=== PATIENT | female | born 1955 | race Caucasian/White ===

== ENCOUNTER → 2016-06-27 | Outpatient (CLI) | payer MEDICARE, OTHER ==
--- NOTE | 2016-06-27 17:03 | XR ---
EXAMINATION TYPE: XR shoulder complete LT DATE OF EXAM: 06/27/2016 4:55 PM COMPARISON: NONE HISTORY: Chronic pain, patient is recently having anterior shoulder pain with axillary area swelling TECHNIQUE: 3 views FINDINGS: The bones and joints and soft tissues are unremarkable. IMPRESSION: Negative examination.
== END | disposition home or self-care (01) ==
LOC: RADXRMAIN 16:32
PROVIDERS: ATTEND Family Medicine
DX: M25.512 Pain in left shoulder (principal)

== ENCOUNTER 2016-08-09 11:03 | Emergency (ER) | payer MEDICARE, OTHER ==
[2016-08-09] MEDS ORDERED: HYDROmorphone 1 MG/ML 1 ML SYRINGE IVP STA (12:06)
[2016-08-09 12:37] LABS: Basophils % (A) 0 %; CH 30.9; CHCM 34.2; Eosinophils # (A) 0.4 k/uL (0-0.7); Eosinophils % (A) 4 %; HDW 3.29; HGB 13.5 gm/dL (11.4-16.0); Luc # (Auto) 0.16; Luc % (Auto) 2; Lymphocytes # (A) 1.5 k/uL (1.0-4.8); Lymphocytes % (A) 15 %; MCV 90.8 fL (80.0-100.0); Monocytes # (A) 0.3 k/uL (0-1.0); Monocytes % (A) 3 %; Neutrophils # (A) 7.6 k/uL (1.3-7.7); Neutrophils % (A) 76 %; RBC 4.51 m/uL (3.80-5.40); RDW 15.4 % (11.5-15.5)
--- NOTE | 2016-08-09 13:01 | XR ---
EXAMINATION TYPE: XR tibia fibula RT DATE OF EXAM ORDERED: 08/09/2016 12:39 PM HISTORY: Pain. COMPARISON: None. FINDINGS: There is a large soft tissue defect in the medial aspect of the calf. No fracture, disloca tion or radiopaque foreign body is seen. IMPRESSION: SOFT TISSUE LACERATION.
[2016-08-09 13:03] LABS: Anion Gap 13 mmol/L; Blood Urea Nitrogen 18 mg/dL (7-17); Calcium 9.5 mg/dL (8.4-10.2); Carbon Dioxide 24 mmol/L (22-30); Chloride 104 mmol/L (98-107); Glucose 89 mg/dL (74-99); Non-African American GFR(MDRD) 58 (>60 ml/min/1.73 sqM); Potassium 4.4 mmol/L (3.5-5.1); Sodium 141 mmol/L (137-145)
[2016-08-09 13:16] LABS: Partial Thromboplastin Time 21.1 sec (22.0-30.0)
[2016-08-09] MEDS ORDERED: AMOXIC-POT CLAV 875-125MG 1 EACH TAB PO STA (15:11)
--- NOTE | 2016-08-09 15:21 | ED ---
General Adult HPI - General Chief complaint: Animal Bite Stated complaint: Dog bite Time Seen by Provider: 08/09/16 11:28 Source: patient Mode of arrival: wheelchair - History of Present Illness Initial comments: 61-year-old female presented for evaluation of dog bite to right calf. Dog a surgeon she states immunizations are up-to-date. The dog was fighting with a group of other dogs and she tried to split up when her dog bit her. There is moderate amount of bleeding from the wound and she was brought to the ED by her . She denies any other injuries. States her tetanus is out of date. - Related Data Home Medications Medication Instructions Recorded Confirmed predniSONE 10 mg PO HS 04/08/16 08/09/16 Diazepam [Valium] 10 mg PO BID 08/09/16 08/09/16 Previous Rx's Medication Instructions Recorded Amoxic-Pot Clav 875-125Mg 1 tab PO Q12HR #20 tablet 08/09/16 [Augmentin 875-125] HYDROcodone/APAP 5-325MG [[place] 1 - 2 tab PO Q6HR PRN #14 tab 08/09/16 5-325] Ibuprofen [Motrin] 800 mg PO Q8HR PRN #20 tab 08/09/16 Allergies Allergy/AdvReac Type Severity Reaction Status Date / Time shellfish derived [Shrimp] Allergy Nausea & Verified 08/09/16 11:08 Vomiting shrimp Allergy Nausea & Verified 08/09/16 11:08 Vomiting Review of Systems ROS Statement: Those systems with pertinent positive or pertinent negative responses have been documented in the HPI. ROS Other: All systems not noted in ROS Statement are negative. Constitutional: Denies: fever, chills Eyes: Denies: eye pain, eye discharge ENT: Denies: ear pain, throat pain, dental pain, hearing loss Respiratory: Denies: cough, dyspnea, wheezes, hemoptysis Cardiovascular: Denies: chest pain, palpitations, dyspnea on exertion, orthopnea Endocrine: Denies: fatigue, polydipsia, polyuria Gastrointestinal: Denies: abdominal pain, nausea, vomiting Genitourinary: Denies: urgency, dysuria, frequency, hematuria Musculoskeletal: Denies: back pain, arthralgia Skin: Reports: other (Laceration through subcutaneous tissue). Denies: rash Neurological: Denies: headache, weakness Psychiatric: Denies: anxiety, depression Past Medical History Past Medical History: GERD/Reflux, Memory Impairment, Rheumatoid Arthritis (RA) Additional Past Medical History / Comment(s): Has been on steroids for 4 yrs for Rheumatoid arthritis, carpal tunnel, neuropathy in bilateral hands and feet , sores over entire body from itching. History of Any Multi-Drug Resistant Organisms: None Reported Past Surgical History: Adenoidectomy, Tonsillectomy Past Anesthesia/Blood Transfusion Reactions: No Reported Reaction Past Psychological History: Depression Smoking Status: Former smoker Past Alcohol Use History: Occasional Additional Past Alcohol Use History / Comment(s): Smoked 1 1/2 PPD for 40 yrs, quit in 2011. Past Drug Use History: None Reported - Past Family History Father Family Medical History: Cancer Mother Family Medical History: Cancer General Exam Limitations: no limitations General appearance: alert, in distress Head exam: Present: atraumatic, normocephalic Eye exam: Present: normal appearance, PERRL, EOMI ENT exam: Present: normal exam, normal oropharynx Neck exam: Present: normal inspection. Absent: tenderness Respiratory exam: Present: normal lung sounds bilaterally. Absent: respiratory distress, wheezes, rales, rhonchi Cardiovascular Exam: Present: regular rate, normal rhythm. Absent: bradycardia , tachycardia, irregular rhythm GI/Abdominal exam: Present: soft. Absent: distended, tenderness, guarding, rebound, rigid Rectal exam: Present: deferred Extremities exam: Present: tenderness, other. Absent: normal inspection (25 cm laceration to the right calf with extension to the muscle belly) Back exam: Present: normal inspection, full ROM Neurological exam: Present: alert, oriented X3, CN II-XII intact. Absent: altered Psychiatric exam: Present: agitated, anxious Skin exam: Present: warm, dry Course Vital Signs 08/09/16 08/09/16 11:08 15:44 Temperature 98.4 F 97.7 F Pulse Rate 61 60 Respiratory 17 16 Rate Blood Pressure 116/68 125/58 O2 Sat by Pulse 99 98 Oximetry Procedures - Laceration Laceration #1 Consent Obtained: verbal consent Time Out Performed: Yes Indication: laceration Site: lower extremity Size (cm): 25 Description: stellate Depth: involves muscle layer Sedation/Analgesia: none Anesthetic Used: lidocaine 2% Anesthesia Technique: local infiltration Pre-repair: irrigated extensively Size of Sutures: 4-0 Number of Sutures: 23 Technique: simple, interrupted Patient Tolerated Procedure: well Additional Comments: Genny Choudhary performed procedure under supervision Medical Decision Making - Medical Decision Making 61-year-old female presenting for evaluation of laceration to right calf resulting from dog bite. Tetanus status is out of date. Physical exam of the wound reveals there is laceration through the subcutaneous tissue. Patient pain controlled and x-ray revealed no foreign bodies in the wound. It was copiously irrigated and laceration repair by [employer] student Genny Choudhary with close approximation. Wound bandaged and tetanus status updated. Pt tolerated procedure well and given first dose of antibiotics. She was advised follow-up with her primary care physician but to return to this facility if her symptoms should worsen or persist. She acknowledged an understanding of this information and agreed with this plan of care. - Lab Data Result diagrams: 08/09/16 12:20 08/09/16 12:20 Lab Results 08/09/16 08/09/16 08/09/16 Range/Units 12:20 12:20 12:20 WBC 10.0 (3.8-10.6) k/uL RBC 4.51 (3.80-5.40) m/uL Hgb 13.5 (11.4-16.0) gm/dL Hct 41.0 (34.0-46.0) % MCV 90.8 (80.0-100.0) fL MCH 30.0 (25.0-35.0) pg MCHC 33.0 (31.0-37.0) g/dL RDW 15.4 (11.5-15.5) % Plt Count 250 (150-450) k/uL Neutrophils % 76 % Lymphocytes % 15 % Monocytes % 3 % Eosinophils % 4 % Basophils % 0 % Neutrophils # 7.6 (1.3-7.7) k/uL Lymphocytes # 1.5 (1.0-4.8) k/uL Monocytes # 0.3 (0-1.0) k/uL Eosinophils # 0.4 (0-0.7) k/uL Basophils # 0.0 (0-0.2) k/uL PT 10.0 (9.0-12.0) sec INR 1.0 (<1.1) APTT 21.1 L (22.0-30.0) sec Sodium 141 (137-145) mmol/L Potassium 4.4 (3.5-5.1) mmol/L Chloride 104 (98-107) mmol/L Carbon Dioxide 24 (22-30) mmol/L Anion Gap 13 mmol/L BUN 18 H (7-17) mg/dL Creatinine 0.98 (0.52-1.04) mg/dL Est GFR (MDRD) Af Amer >60 (>60 ml/min/1.73 sqM) Est GFR (MDRD) Non-Af 58 (>60 ml/min/1.73 sqM) Glucose 89 (74-99) mg/dL Calcium 9.5 (8.4-10.2) mg/dL Disposition Clinical Impression: Dog bite, Laceration Disposition: HOME SELF-CARE Condition: Stable Instructions: Animal Bite (ED), Laceration (ED) Additional Instructions: Please use medication as discussed. Please follow up with family doctor if symptoms have not improved over the next two days. Please return to the emergency room if your symptoms increase or worsen or for any other concerns. Prescriptions: Amoxic-Pot Clav 875-125Mg [Augmentin 875-125] 1 tab PO Q12HR #20 tablet HYDROcodone/APAP 5-325MG [[place] 5-325] 1 - 2 tab PO Q6HR PRN #14 tab PRN Reason: Analgesia Ibuprofen [Motrin] 800 mg PO Q8HR PRN #20 tab PRN Reason: Analgesia Referrals: Calderon Colmenares MD [Primary Care Provider] - 1-2 days Time of Disposition: 15:21
[2016-08-09] MEDS ORDERED: DIPH,PERTUS(ACELL)TETVAC-LF 0.5 ML VIAL IM ONE (15:42)
[2016-08-09 15:44] VITALS: BP 125/58; PULSE 60; RESP 16; TEMP 97.7
== END 2016-08-09 16:05 | disposition home or self-care (01) ==
LOC: EC 11:03
DX: S81.811A Laceration without foreign body, right lower leg, initial encounter (principal); W54.0XXA Bitten by dog, initial encounter; Z79.899 Other long term (current) drug therapy; Z23 Encounter for immunization; Z87.891 Personal history of nicotine dependence; Z91.013 Allergy to seafood
CPT/HCPCS: 36415; 80048; 85025; 85610; 85730; 73590; 90715; 90471; 96374; 12036; 99284; J1170

== ENCOUNTER 2016-08-28 11:47 | Emergency (ER) | payer MEDICARE ==
[2016-08-28 12:17] VITALS: BP 132/75; PULSE 66; RESP 20; TEMP 99.4
--- NOTE | 2016-08-28 16:09 | ED ---
General Adult HPI - General Chief complaint: Recheck/Abnormal Lab/Rx Stated complaint: stitches out Time Seen by Provider: 08/28/16 15:51 Source: patient, RN notes reviewed Mode of arrival: ambulatory Limitations: no limitations - History of Present Illness Initial comments: Patient is 61-year-old female who presents emergency room today with chief complaint of possible infected wound. She does admit that she was seen here in the emergency room approximately 2 and half weeks ago for dog bite to the right calf. States that she had stitches placed. States she was supposed to have stitches taken out 5 days ago but she noticed it seemed like it was quite open nauseous left stitches in. She states that she thinks it may be an infection now. States she was on antibiotics for 10 days after the bite. She states she' s been off his antibiotics now for over the last week. States there is some local redness. She does admit that seems to be somewhat improved from a few days ago. She denies any other complaints or symptoms. States been using a topical antibiotic. Patient denies any recent fever, chills, shortness of breath , chest pain, back pain, abdominal pain, nausea or vomiting, numbness or tingling, dysuria or hematuria, constipation or diarrhea, headaches or visual changes, or any other complaints. - Related Data Home Medications Medication Instructions Recorded Confirmed predniSONE 10 mg PO DAILY 04/08/16 08/28/16 Cholecalciferol [Vitamin D3] 1,000 unit PO DAILY 08/28/16 08/28/16 PARoxetine HCL [Paxil] 40 mg PO DAILY 08/28/16 08/28/16 Previous Rx's Medication Instructions Recorded Amoxicillin/Potassium Clav 1 each PO Q12HR #20 tab 08/28/16 [Augmentin 875-125 Tablet] Allergies Allergy/AdvReac Type Severity Reaction Status Date / Time shellfish derived [Shrimp] AdvReac Nausea & Verified 08/28/16 16:08 Vomiting shrimp AdvReac Nausea & Verified 08/28/16 16:08 Vomiting Review of Systems ROS Statement: Those systems with pertinent positive or pertinent negative responses have been documented in the HPI. ROS Other: All systems not noted in ROS Statement are negative. Past Medical History Past Medical History: GERD/Reflux, Memory Impairment, Rheumatoid Arthritis (RA) Additional Past Medical History / Comment(s): Has been on steroids for 4 yrs for Rheumatoid arthritis, carpal tunnel, neuropathy in bilateral hands and feet , sores over entire body from itching. History of Any Multi-Drug Resistant Organisms: None Reported Past Surgical History: Adenoidectomy, Tonsillectomy Past Anesthesia/Blood Transfusion Reactions: No Reported Reaction Past Psychological History: Depression Smoking Status: Former smoker Past Alcohol Use History: Occasional Additional Past Alcohol Use History / Comment(s): Smoked 1 1/2 PPD for 40 yrs, quit in 2011. Past Drug Use History: None Reported - Past Family History Father Family Medical History: Cancer Mother Family Medical History: Cancer General Exam - General Exam Comments Initial Comments: General: The patient is awake and alert, in no distress, and does not appear acutely ill. Neck: The neck is supple, there is no tenderness or JVD. Cardiovascular: There is a regular rate and rhythm. No murmur, rub or gallop is appreciated. Respiratory: Lungs are clear to auscultation, respirations are non-labored, breath sounds are equal. No wheezes, stridor, rales, or rhonchi. Musculoskeletal: Full range of motion. Sensation intact. Pulses equal bilateral 2+. Strength 5/5. Neurological: A&O x 3. CN II-XII intact, There are no obvious motor or sensory deficits. Coordination appears grossly intact. Speech is normal. Skin: Patient does have a large U-shaped laceration to the medial aspect of the right calf. There is some local redness swelling surrounding the laceration site. No lymphangitic streaking. Psychiatric: Normal mood and affect. Limitations: no limitations Course Vital Signs 08/28/16 12:15 Temperature 99.4 F Pulse Rate 66 Respiratory 20 Rate Blood Pressure 132/75 O2 Sat by Pulse 98 Oximetry Medical Decision Making - Medical Decision Making Case discussed in detail with attending physician Dr. Darling. Patient's wound was rechecked here in the emergency room. Patient did have 23 stitches that were placed. 15 stitches were taken out here today. Every other stitch was left in. Patient advised to stop using topical antibiotic as seems to be making the wound edges unable to heel. Wound cultures been obtained. Patient will be placed back on Augmentin. Patient is advised to watch for any increase or worsening of symptoms. Advised return in 2 days to have wound rechecked and have possible sutures taken out then. Patient states understanding and is in agreement with this plan. Disposition Clinical Impression: Encounter for wound re-check Disposition: HOME SELF-CARE Condition: Good Instructions: Animal Bite (ED) Additional Instructions: Please use antibiotic as prescribed. Please return in 2 days to have a wound recheck to have sutures possibly removed at that time. Please return here to the emergency room if there is any increased worsening of symptoms as discussed. Please return for any other concerns. Prescriptions: Amoxicillin/Potassium Clav [Augmentin 875-125 Tablet] 1 each PO Q12HR #20 tab Time of Disposition: 16:29
== END 2016-08-28 16:53 | disposition home or self-care (01) ==
LOC: EC 11:47
DX: Z48.817 Encounter for surgical aftercare following surgery on the skin and subcutaneous tissue (principal); F32.9 Major depressive disorder, single episode, unspecified; M06.89 Other specified rheumatoid arthritis, multiple sites; Z87.891 Personal history of nicotine dependence; Z79.52 Long term (current) use of systemic steroids; Z79.899 Other long term (current) drug therapy; Z87.2 Personal history of diseases of the skin and subcutaneous tissue; Z91.013 Allergy to seafood
CPT/HCPCS: 87070; 87077; 87186; 87205; 99283

== ENCOUNTER 2016-09-17 10:30 | Day surgery (SDC) | payer MEDICARE ==
[2016-09-13 10:56] VITALS: BMI 24.3
[~2016-09-17 10:30] MED LIST: DEXAMETHASONE SOD PHOSPHATE 10 MG/ML 1 ML VIAL IV ONE; LACTATED RINGERS 1,000 ML IV SCH; LIDOCAINE 1% 20 ML VIAL (10MG/ML) FOR IV START INTRADERMA PRN; MIDAZOLAM 2 MG/2 ML VIAL IV PRN; ONDANSETRON 4 MG/2 ML VIAL IVP ONE; Pre Op ABX Message 1 EACH MISC MISCELLANE ONE; SCOPOLAMINE 1.5MG/72HR PATCH TRANSDERM ONE
[2016-09-17 11:08] VITALS: RESP 16; TEMP 97.7
[2016-09-17] MEDS ORDERED: HYDROCORTISONE SUCCINATE 100 MG/2 ML VIAL IVP ONE (11:19)
[2016-09-17] MEDS ORDERED: fentaNYL (PF) 50 MCG/ML 2 ML AMP ONE (11:49)
[2016-09-17] MEDS ORDERED: LIDOCAINE 1% INJ 10MG/ML (20 ML MDV) ONE (11:49)
[2016-09-17] MEDS ORDERED: KETAMINE 10 MG/ML 20 ML VIAL ONE (11:49)
[2016-09-17] MEDS ORDERED: MIDAZOLAM 2 MG/2 ML VIAL ONE (11:49)
[2016-09-17] MEDS ORDERED: PROPOFOL 10 MG/ML 20 ML VIAL IV ONE (11:49)
[2016-09-17] MEDS ORDERED: SODIUM CHLORIDE 0.9% 100 ML with ceFAZolin 1,000 MG IV ONE ×2 (11:51)
--- NOTE | 2016-09-17 11:53 | P.GSHP ---
History of Present Illness H&P Date: 09/17/16 Chief Complaint: Traumatic ulcer medial right calf Patient is status post dog bite. She has a large ulceration residual with necrotic tissue - Review of Systems Comment: See recent H&P Past Medical History Past Medical History: COPD, GERD/Reflux, Memory Impairment, Rheumatoid Arthritis (RA) Additional Past Medical History / Comment(s): Has been on steroids for 4 yrs for Rheumatoid arthritis, carpal tunnel, neuropathy in bilateral hands and feet , skin has cuts and bruises all over, skin is thin. Rt. leg wound from dog bite. Mild COPD and fibrous lungs. History of Any Multi-Drug Resistant Organisms: None Reported Past Surgical History: Adenoidectomy, Tonsillectomy Past Anesthesia/Blood Transfusion Reactions: No Reported Reaction Past Psychological History: Depression Smoking Status: Former smoker Past Alcohol Use History: Occasional Additional Past Alcohol Use History / Comment(s): Smoked 1 1/2 PPD for 40 yrs, quit in 2011. Past Drug Use History: None Reported - Past Family History Father Family Medical History: Cancer Mother Family Medical History: Cancer Medications and Allergies Home Medications Medication Instructions Recorded Confirmed Type predniSONE 10 mg PO HS 04/08/16 09/17/16 History Cholecalciferol [Vitamin D3] 1,000 unit PO DAILY 08/28/16 09/17/16 History PARoxetine HCL [Paxil] 40 mg PO HS 08/28/16 09/17/16 History Diazepam [Valium] 10 mg PO BID PRN 09/13/16 09/17/16 History Allergies Allergy/AdvReac Type Severity Reaction Status Date / Time monosodium glutamate AdvReac Nausea & Verified 09/13/16 11:00 Vomiting shellfish derived [Shrimp] AdvReac Nausea & Verified 09/13/16 10:47 Vomiting shrimp AdvReac Nausea & Verified 09/13/16 10:47 Vomiting Surgical - Exam Osteopathic Statement: *. No significant issues noted on an osteopathic structural exam other than those noted in the History and Physical/Consult. Vital Signs Temp Pulse Resp BP Pulse Ox 97.7 F 68 16 124/72 98 09/17/16 11:00 09/17/16 11:00 09/17/16 11:00 09/17/16 11:00 09/17/16 11:00 - General well developed, well nourished, no distress - Eyes normal ocular movement, no icteric - ENT no hearing loss, no congestion - Neck no masses, trachea midline - Respiratory normal expansion, normal respiratory effort, clear to auscultation - Cardiovascular Rhythm: regular - Abdomen Abdomen: soft, non tender, no guarding, no rigid, no rebound - Integumentary Medial aspect right calf has a large necrotic ulceration no rash, no abnormal pigmentation - Neurologic no disoriented, no combative - Musculoskeletal normal gait, normal posture - Psychiatric oriented to time, oriented to person, oriented to place, speech is normal, memory intact Assessment and Plan (1) Ulcer of right calf with fat layer exposed Status: Acute Plan: Patient agrees with with are discussed debridement.
--- NOTE | 2016-09-17 12:15 | P.PCN ---
Date of Procedure: 09/17/16 Preoperative Diagnosis: Traumatic ulceration medial right calf Postoperative Diagnosis: Same Procedure(s) Performed: Surgical debridement medial right calf Anesthesia: MAC Surgeon: Luis Antonio Izaguirre Estimated Blood Loss (ml): 20 Pathology: none sent Condition: stable Disposition: PACU Indications for Procedure: Patient has a very necrotic ulceration medial right calf secondary to a dog bite and attempted repair Operative Findings: There was a lot of slough. There were some necrotic fatty tissue and necrotic skin edges Description of Procedure: With the patient supine position, under benefit of IV sedation, we prepped and draped in standard fashion. We used first a scalpel and then a sharp curet to excise some necrotic skin edges. We removed nonviable fatty tissue and slough. We left a clean bloody subcutaneous bed. Hemostasis was accomplished with direct pressure. Adaptic and otherwise sterile dressings with covering Evin wrap were applied. The patient tolerated the procedure well. She was taken recovery area in stable condition.
[2016-09-17] MEDS: HYDROmorphone 1 MG/ML 1 ML SYRINGE IVP PRN ×4 (12:32→12:51)
[2016-09-17 13:34] VITALS: BP 107/70; PULSE 64
== END 2016-09-17 14:00 | disposition home or self-care (01) ==
LOC: OR 10:30
PROVIDERS: ATTEND Thoracic Surgery (Cardiothoracic Vascular Surgery)
DX: L97.212 Non-pressure chronic ulcer of right calf with fat layer exposed (principal); J44.9 Chronic obstructive pulmonary disease, unspecified; J84.10 Pulmonary fibrosis, unspecified; F32.9 Major depressive disorder, single episode, unspecified; F41.9 Anxiety disorder, unspecified; Z79.52 Long term (current) use of systemic steroids; Z79.899 Other long term (current) drug therapy; M06.9 Rheumatoid arthritis, unspecified; Z87.891 Personal history of nicotine dependence; Z91.02 Food additives allergy status; Z91.013 Allergy to seafood
CPT/HCPCS: 11042; J2250; J1100; J1720; J2405; J2001; J3010; J1170; J0690; J2704

== ENCOUNTER 2016-11-04 16:30 | Emergency (ER) | payer MEDICARE ==
[2016-11-04 16:41] VITALS: TEMP 98.4
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
--- NOTE | 2016-11-04 17:29 | XR ---
EXAMINATION TYPE: XR forearm LT DATE OF EXAM: 11/04/2016 COMPARISON: NONE HISTORY: Pain after a fall TECHNIQUE: 2 views FINDINGS: There is a developmentally short ulna. I see no fracture nor dislocation. Elbow joint is in tact. IMPRESSION: No acute abnormality of the left forearm.
--- NOTE | 2016-11-04 17:32 | XR ---
EXAMINATION TYPE: XR hand complete LT DATE OF EXAM: 11/04/2016 COMPARISON: NONE HISTORY: Pain TECHNIQUE: 3 views FINDINGS: There is developmentally short ulna. There is a possible nondisplaced 6 mm chip fracture of the lateral scaphoid bone. There is no dislocation. IMPRESSION: Possible nondisplaced scaphoid chip fracture.
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
--- NOTE | 2016-11-04 17:37 | XR ---
EXAMINATION TYPE: XR chest 1V portable DATE OF EXAM: 11/04/2016 COMPARISON: NONE HISTORY: Pain after a fall TECHNIQUE: Single frontal view of the chest is obtained. FINDINGS: Heart and mediastinum are normal. Lungs are clear. Diaphragm is normal. Bony thorax is int act. IMPRESSION: Normal single view chest.
[2016-11-04] MEDS ORDERED: HYDROmorphone 1 MG/ML 1 ML SYRINGE IVP STA (18:49)
[2016-11-04 20:52] VITALS: BP 103/62; PULSE 66; RESP 17
== END 2016-11-04 20:56 | disposition short-term general hospital (02) ==
LOC: EC 16:30
DX: S32.402A Unspecified fracture of left acetabulum, initial encounter for closed fracture (principal); S32.9XXA Fracture of unspecified parts of lumbosacral spine and pelvis, initial encounter for closed fracture; S62.002A Unspecified fracture of navicular [scaphoid] bone of left wrist, initial encounter for closed fracture; M06.9 Rheumatoid arthritis, unspecified; Z91.013 Allergy to seafood; Z88.8 Allergy status to other drugs, medicaments and biological substances; Z79.52 Long term (current) use of systemic steroids; Z79.899 Other long term (current) drug therapy; Y08.89XA Assault by other specified means, initial encounter
CPT/HCPCS: 99285; 96374; 29125; 71010; 73502; 73090; 73130; J1170

== ENCOUNTER → 2016-12-28 | Outpatient (CLI) | payer MEDICARE ==
--- NOTE | 2016-12-28 13:43 | MR ---
EXAMINATION TYPE: MR wrist LT wo con DATE OF EXAM: 12/28/2016 COMPARISON: Correlation and radiographs 11/04/2016 HISTORY: 61-year-old female R/O SCAPHOID FX S/P FALL TECHNIQUE: Multiplanar, multisequence images of the left wrist were obtained without IV contrast. FINDINGS: There is a nondisplaced fracture of the distal pole of the scaphoid with fracture extending into the scaphoid trapezium joint. Associated edema of the distal pole. Extensive abnormal signal extends throughout the capitate. Findings may represent nondisplaced subcho ndral fractures along its articulation with both the proximal carpal row and carpometacarpal joints. There is also a minimally distracted fracture through the base of the hamate. Mild degenerative change of the base of thumb. No significant wrist joint effusion. There is globular increased signal of the scapholunate ligament. There may be a small perforation of the proximal portion of the ligament. No dyllan rupture of the dorsal portion. The lunotriquetral ligament is intact. There is a small central perforation within the triangular fibrocartilage with small effusion in the distal radioulnar joint. There is negative ulnar variance with some degenerative changes at this join t also noted. Difficult to exclude an additional TFC tear and the ulnar styloid attachment. There is also increased signal within the dorsal radioulnar ligament. There is dyllan anterior subluxation/dislocation of the ECU without any significant edema at the level of its subsheath. Multiple slips of the abductor pollicis longus are noted. The flexor carpi radialis shows mild tenosy novial fluid at the level of the wrist. Otherwise, the dorsal extensor and volar flexor tendons are within normal limits. Median nerve is normal caliber. IMPRESSION: 1. Nondisplaced fracture of the distal scaphoid pole. 2. Additional extensive abnormal signal extending through the capitate. Suspect nondisplaced subchond ral impaction fractures at its articulation with both the proximal carpal row and CMC joints. 3. Nondisplaced fracture through the base of the hamate. 4. Moderate sprain of the dorsal scapholunate ligament and suspected small perforation of the proxima l portion of the ligament. No dyllan rupture. 5. Small central tear of the TFC with suspected additional tear at the ulnar styloid attachment. Mild to moderate sprain of the dorsal radioulnar ligament of the TFCC. 6. 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 7. 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 8. Mild FCR tenosynovitis.
== END | disposition home or self-care (01) ==
LOC: RADMRIMAIN 11:57
PROVIDERS: ATTEND Orthopaedic Surgery Hand Surgery
DX: S62.015A Nondisplaced fracture of distal pole of navicular [scaphoid] bone of left wrist, initial encounter for closed fracture (principal); S63.592A Other specified sprain of left wrist, initial encounter; M65.842 Other synovitis and tenosynovitis, left hand

== ENCOUNTER → 2017-01-31 | Outpatient (CLI) | payer MEDICARE ==
--- NOTE | 2017-01-31 09:43 | CT ---
EXAMINATION TYPE: CT chest w con DATE OF EXAM: 01/31/2017 COMPARISON: 11/04/2016 and 03/19/2016 HISTORY: chest mass CT DLP: 221.8 mGycm. Automated Exposure Control for Dose Reduction was Utilized. TECHNIQUE: CT scan of the thorax is performed following with IV Contrast, patient injected with 100 mL of Omnipaque 300. FINDINGS: LUNGS: Again mild to moderate centrilobular pulmonary emphysema is noted. Right upper lobe pulmonary nodules, unchanged from the prior measuring 3.4 mm on image 18, 3.4 mm on image 17, 3.4 mm on image 1 3, in a proximally 5.0 cm along the interlobar fissure on image 31 are unchanged from the prior of . 4.7 mm right middle lobe pulmonary nodule is also unchanged retrospectively on image 29. All of these nodules appear solid. No new pulmonary nodules are seen bilaterally. Minimal subsegmental b ibasilar atelectasis is noted. MEDIASTINUM: There are no greater than 1 cm hilar or mediastinal lymph nodes. No pericardial effusi on is seen. Incidentally the left vertebral artery originates strictly from the aortic arch, normal variation. OTHER: Splenomegaly is incidentally noted spleen measures 14.0 cm and great is longitudinal dimension and is not completely visualized on coronal imaging to get accurate measurement and craniocaudal dim ension. Mild degenerative changes of thoracic spine are overall similar to the prior exam. IMPRESSION: 1. Multiple solid right pulmonary nodules, unchanged from the prior exam of 03/19/2016. Low dose CT is recommended in one year to confirm stability or assess for progression. 2. Incidentally noted splenomegaly.
== END | disposition home or self-care (01) ==
LOC: RADCTMAIN 08:02
PROVIDERS: ATTEND Family Medicine
DX: R91.8 Other nonspecific abnormal finding of lung field (principal)
CPT/HCPCS: 71260; Q9967

== ENCOUNTER → 2017-03-07 | Outpatient (CLI) | payer MEDICARE ==
--- NOTE | 2017-03-07 15:54 | CT ---
EXAMINATION TYPE: CT wrist LT wo con DATE OF EXAM: 03/07/2017 COMPARISON: MR left wrist 12/28/2016 HISTORY: wrist fx in October/still having pain. hx RA CT DLP: 147.40 mGycm Automated exposure control for dose reduction was used. FINDINGS: The bones show decreased mineralization. The distal pole of the scaphoid shows some sclerosis as well as a small focal cortical lucency distally compatible with healing fracture. No significant periosti tis. Remodeling again noted at the radiocarpal joint, osteoarthritic change suspected at the carpomet acarpal joint of the first digit. There is some posterior subluxation of the ulna in relation to the radius. Correlate clinically. Capitate also shows some sclerosis compatible with microtrabecular frac ture healing. Tendon abnormalities described on prior wrist MR not as well-defined. There is negative ulnar variance. There is associated osteoarthritic change as noted on MRI of the distal radioulnar j oint. IMPRESSION: FINDINGS COMPATIBLE WITH HEALING OF PATIENT'S PREVIOUSLY DESCRIBED FRACTURES. ADDITIONAL FINDINGS ABO VE.
== END | disposition home or self-care (01) ==
LOC: RADCTMAIN 13:09
PROVIDERS: ATTEND Orthopaedic Surgery Hand Surgery
DX: S62.002D Unspecified fracture of navicular [scaphoid] bone of left wrist, subsequent encounter for fracture with routine healing (principal)

== ENCOUNTER → 2023-02-28 | Outpatient (CLI) | payer MEDICARE ==
[~2023-02-28] MED LIST changes: +DENOSUMAB 60 MG/ML 1 ML SYRINGE SQ NR; -DEXAMETHASONE SOD PHOSPHATE 10 MG/ML 1 ML VIAL IV ONE; -LACTATED RINGERS 1,000 ML IV SCH; -LIDOCAINE 1% 20 ML VIAL (10MG/ML) FOR IV START INTRADERMA PRN; -MIDAZOLAM 2 MG/2 ML VIAL IV PRN; -ONDANSETRON 4 MG/2 ML VIAL IVP ONE; -Pre Op ABX Message 1 EACH MISC MISCELLANE ONE; -SCOPOLAMINE 1.5MG/72HR PATCH TRANSDERM ONE
[2023-02-28 11:55] VITALS: BP 100/62; PULSE 68; RESP 16; TEMP 97.5
== END ==
LOC: PROCWHC3 11:22
PROVIDERS: ATTEND Family Medicine
DX: M81.0 Age-related osteoporosis without current pathological fracture (principal)
CPT/HCPCS: 96372; J0897